=== PATIENT | male | born 1955 | race Caucasian/White ===

== ENCOUNTER 2021-03-20 07:06 | Day surgery (SDC) | payer BC ==
[2021-03-17 14:16] LABS: Absolute Lymphocytes (CBC) 2.8 K/uL (0.7-4.9); Hematocrit 44.8 % (39.6-49.0); Lymphocytes % 28.7 % (15.3-44.8); RBC Red Blood Cell Count 4.55 M/uL (4.33-5.43)
--- NOTE | 2021-03-17 14:19 | RAD REPORT ---
EXAM DESCRIPTION: RAD - Chest Pa And Lat (2 Views) - 03/17/2021 2:12 pm CLINICAL HISTORY: Pre op pending hernia surgery COMPARISON: No comparisons FINDINGS: Lines: None. Lungs: No evidence of edema or pneumonia. Pleural: No significant pleural effusions or pneumothorax. Cardiac: The heart size is within normal limits. Bones: No acute fractures. Sternotomy. Other: Surgical clips in the left axilla.Mitral annuloplasty . IMPRESSION: No acute cardiopulmonary disease.
[2021-03-17 14:31] LABS: Potassium 4.2 mmol/L (3.5-5.1)
[2021-03-17 15:00] LABS: Blood Morphology Comment NOT SEEN (NOT SEEN); Platelet Estimate DECR; White Blood Cell Scan OK (OK)
[2021-03-20] MEDS ORDERED: CEFAZOLIN/NS 1gm 1 GM/50 ML BAG ONE (07:26)
[2021-03-20] MEDS ORDERED: Ringers Lactate 1,000 ML IV ONE ×2 (07:26→10:11)
[2021-03-20] MEDS ORDERED: propofoL 200 MG/20 ML VIAL IV ONE (08:03)
[2021-03-20] MEDS ORDERED: MIDAZOLAM HCL 2 MG/2 ML INJ ONE (08:03)
[2021-03-20] MEDS ORDERED: FENTANYL CITR 250 MCG/5 ML ONE (08:04)
[2021-03-20] MEDS ORDERED: GLYCOPYRROLATE 0.2 MG/ML SYR ONE ×2 (08:04)
[2021-03-20] MEDS ORDERED: ONDANSETRON 4 MG/2 ML VIAL ONE (08:05)
[2021-03-20] MEDS ORDERED: ROCURONIUM 50 MG/5 ML VIAL IV ONE (08:05)
[2021-03-20] MEDS ORDERED: LIDOCAINE 1% MPF 5 ML VIAL ONE (08:05)
[2021-03-20] MEDS ORDERED: BUPIVACAINE 0.5% PF 10 ML VIAL ONE ×2 (08:13→08:53)
[2021-03-20] MEDS ORDERED: EPHEDRINE SULF 50 MG/ML VIAL ONE (09:31)
[2021-03-20] MEDS ORDERED: Mastisol Adhesive Liq ONE ×2 (10:21→10:23)
[2021-03-20] MEDS: HYDROMORPHONE HCL 2 MG/ML inj ONE ×3 (10:46→10:57)
[2021-03-20] MEDS ORDERED: CODEINE 30MG/APAP 300MG TAB ONE (11:44)
[2021-03-20] MEDS ORDERED: CODEINE 30MG/APAP 300MG TAB PO ONE (11:47)
[2021-03-20 11:57] VITALS: O2SAT 97
[2021-03-20 13:02] VITALS: BP 144/87; TEMP 98
--- NOTE | 2021-03-20 14:05 | OP ---
Date of Procedure: 03/20/2021 Surgeon: Zachary Randall MD Document Processor: Erik Crystal, surgical sales representative certified. Preoperative Diagnosis: Umbilical and bilateral inguinal hernia. Postoperative Diagnosis: Umbilical and bilateral inguinal hernia. Procedure: Repair of umbilical and bilateral inguinal hernia. Estimated Blood Loss: Minimal. Specimen: Hernia sac and contents. Finding: As above with umbilical hernia with preperitoneal fat and bilateral inguinal hernia, direct type. Anesthesia: General. Complications: None. Disposition: The patient tolerated the procedure in stable condition and taken to Recovery in good g eneral condition. Procedure In Detail: The patient was brought to the OR and placed in supine position. General anest hesia begun. The patient was prepped and draped in the usual sterile fashion. Marcaine 0.5% infiltr ated locally. Then, a 15-blade was used to make a 3 cm vertical incision in the midline just above t he umbilicus and the subcutaneous tissue divided. Hernia sac and contents identified and excised. A pproximately a 3 cm Ventralex mesh placed and then the primary closure of the fascia with the mesh pe rformed in the standard fashion and then subcutaneous wounds irrigated. Bleeding controlled with cau niles. A 3-0 chromic used to reapproximate subcutaneous tissue and reattach the umbilicus and 4-0 Mon ocryl used to close skin. Sterile dressing applied. In the right groin, a 4 cm oblique incision mad e between the pubic tubercle and the anterior iliac superior spine. Subcutaneous tissue was divided. Ronni fascia identified and divided. Aponeurosis identified and mobilized inferiorly to expose th e shelving edge. Then, the external ring opened on the aponeurosis. The ilioinguinal nerve identifi ed and retracted out of the field of dissection. Cord mobilized and skeletonized. No indirect sac w as present. A large indirect hernia defect present. This was reduced back into the peritoneal cavit y and then starting at the pubic tubercle with a 2-0 Prolene. The inguinal floor was reconstructed b y joining the conjoined tendon to the shelving edge. New internal ring was created and then a Marlex mesh plug was placed and secured with VersaTack stapler. Onlay mesh was placed on the inguinal floo r, secured medially to the pubic tubercle, inferiorly to the shelving edge, superiorly to the conjoin ed tendon, laterally to each other. Then, cord structures and ilioinguinal nerve were placed back in anatomical location. A 2-0 Prolene was used to close the aponeurosis. A 3-0 chromic used to close Ronni fascia and 4-0 Monocryl was used to close skin. Exact same operation occurred on the left ing uinal region. The findings were the same, but the hernia defect was a little smaller. After sterile dressing was applied, the patient was awakened and taken to Recovery in good general condition. Discharge Note: The patient will go to Day Surgery and home when stable. Disposition: Home. Condition: Stable. Discharge Instructions: Resume home medications and diet. Activity as tolerated. No heavy lifting. Remove outer dressing in 2 days. Shower. Keep wound clean and dry. Keep Steri-Strips on at all t imes. Abdominal binder as ordered. Scrotal support, ice pack as ordered. Incentive spirometry as ordered. Tylenol No.3 one tablet p.o. q.4 p.r.n. pain. Follow up in my offi ce in 1 week. Call for appointment. JUMA/KAELA Voice ID: [id number] Report ID: [id number]
== END 2021-03-20 12:50 | disposition home or self-care (01) ==
LOC: OR 07:06
PROVIDERS: ATTEND Surgery
PROC: 0YQA0ZZ Repair Bilateral Inguinal Region, Open Approach (ICD-10-PCS; 2021-03-20)
PROC: 0WQF0ZZ Repair Abdominal Wall, Open Approach (ICD-10-PCS; principal; 2021-03-20 08:30)
DX: K40.20 Bilateral inguinal hernia, without obstruction or gangrene, not specified as recurrent (principal); K42.9 Umbilical hernia without obstruction or gangrene; Z20.822 Contact with and (suspected) exposure to COVID-19
CPT/HCPCS: 93005; 85025; 80048; 36415; 88302; 71046; 49585; 49505; U0003; J2704; J2250; J1170; J3010; J0690; J7120 ×2; J2405

== ENCOUNTER 2024-03-16 13:29 | Emergency (ER) | payer OTHER ==
[2024-03-16] MEDS ORDERED: KETOROLAC 30 MG/ML INJ ONE (14:46)
[2024-03-16] MEDS ORDERED: CYCLOBENZAPRINE 10 MG TAB ONE (14:46)
[2024-03-16] MEDS ORDERED: dexAMETHasone 10 MG/ML VIAL ONE (14:46)
--- NOTE | 2024-03-16 16:28 | RAD REPORT ---
Exam:C Spine Ap/Lat CLINICAL INDICATION: Neck pain Findings: No fracture or dislocation seen. Mild posterior subluxation C5 on C6 and C6-C7 Moderate spondylosis mid and distal cervical spine consisting of osteophytes and disc space narrowing Scoliosis involves the spine
--- NOTE | 2024-03-16 16:30 | RAD REPORT ---
EXAMINATION: Lumbar Spine 3 Views CLINICAL INDICATION: Back pain FINDINGS: No fracture or dislocation seen. Moderate spondylosis involves the spine consistent ing of disc space narrowing, osteophytes, subchond ral sclerosis and vacuum phenomena. Minimal posterior subluxation L3 on L4
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
[2024-03-16 18:38] VITALS: TEMP 97
[2024-03-16 18:39] VITALS: BP 180/114; O2SAT 99
== END 2024-03-16 18:33 | disposition home or self-care (01) ==
LOC: ER 13:29
DX: S19.9XXA Unspecified injury of neck, initial encounter (principal); V43.62XA Car passenger injured in collision with other type car in traffic accident, initial encounter; Y93.89 Activity, other specified; Y92.488 Other paved roadways as the place of occurrence of the external cause; G20.A1 Parkinson's disease without dyskinesia, without mention of fluctuations; F02.80 Dementia in other diseases classified elsewhere, unspecified severity, without behavioral disturbance, psychotic disturbance, mood disturbance, and anxiety
CPT/HCPCS: 72040; 72100; 96372; 99284; J1100